=== PATIENT | male | born 1930 | race Caucasian/White ===

== ENCOUNTER 2019-10-11 19:30 | Emergency (ER) | payer MEDICARE ==
[~2019-10-11] VITALS: Ht 168.9 cm; Wt 68.0 kg
--- NOTE | 2019-10-11 19:50 | NUR ---
PATIENT CAME TO ER BIB C/O DULL 11/16 RIGHT LOWER RIB CAGE PAIN UPON BREATHING S/P GROUND LEVEL FALL. PATIENT STATES THAT HE WAS OUT TO GET THE MAIL WHEN HE LOST HIS BALANCE AND FELL ON HIS RIGHT SIDE. PT DENIES HITTING HIS HEAD OR LOSING CONSCIOUSNESS. AAOX4. NO SOB. BREATHING EVENLY AND UNLABORED ON ROOM AIR. CONNECTED TO MONITOR. Addendum: 10/11/19 at 2013 by DEVIN PATIENT STATES HE TAKES PLAVIX DAILY, LAST TAKEN THIS MORNING.
--- NOTE | 2019-10-11 19:55 | NUR ---
TECH AT BEDSIDE FOR WOUND CLEANING.
[2019-10-11] MEDS ORDERED: ACETAMINOPHEN ES 500 MG TABLET ONE (20:15)
--- NOTE | 2019-10-11 20:17 | NUR ---
TECH AT BEDSIDE FOR EKG.
--- NOTE | 2019-10-11 20:22 | NUR ---
Benzene Worker at bedside for blood draw.
[2019-10-11] MEDS ORDERED: ACETAMINOPHEN ES 500 MG TABLET PO ONE (20:30)
--- NOTE | 2019-10-11 20:32 | NUR ---
xray at bedside.
[2019-10-11 20:34] LABS: BASOPHILS % (AUTO) 0.5 % (0.0-2.0); EOSINOPHILS % (AUTO) 0.7 % (0.0-6.0); HEMATOCRIT 39 % (39-51); HEMOGLOBIN 13.3 g/dL (13.5-17.5); LYMPHOCYTES # (AUTO) 0.8 /CMM (0.8-4.8); LYMPHOCYTES % (AUTO) 11.2 % (20.0-44.0); MEAN CORPUSCULAR HGB CONC 34 g/dl (31.0-36.0); MEAN CORPUSCULAR VOLUME 98 fL (80-96); MONOCYTES # (AUTO) 0.5 /CMM (0.1-1.30); MONOCYTES % (AUTO) 6.7 % (2.0-12.0); NEUTROPHILS # (AUTO) 5.7 /CMM (1.8-8.9); NEUTROPHILS % (AUTO) 80.9 % (43.0-81.0); PLATELET COUNT (AUTO) 183 /CMM (150-450); RED BLOOD CELL COUNT(AUTO) 4.01 MIL/uL (4.5-6.0); WHITE BLOOD COUNT (AUTO) 7.1 K/uL (4.3-11.0)
[2019-10-11 20:46] LABS: CARBON DIOXIDE 29 mmol/L (21-32); CHLORIDE 106 mmol/L (98-107); CREATININE 1.1 mg/dL (0.6-1.3); GLUCOSE 117 mg/dL (74-106); POTASSIUM 4.3 mmol/L (3.5-5.1); SODIUM SERUM 143 mmol/L (136-145); UREA NITROGEN, BLOOD 18 mg/dL (7-18)
[2019-10-11 20:52] LABS: ALANINE AMINOTRANSFERASE 26 U/L (12-78); ALBUMIN 3.6 g/dL (3.4-5.0); ALKALINE PHOSPHATASE 85 U/L (46-116); ASPARTATE AMINOTRANSFERASE 19 U/L (15-37); BILIRUBIN,DIRECT 0.1 mg/dL (0.0-0.2); BILIRUBIN,TOTAL 0.2 mg/dL (0.2-1.0); TOTAL PROTEIN, SERUM 7.1 g/dL (6.4-8.2)
[2019-10-11] MEDS ORDERED: LIDOCAINE 1%-EPI 1:100,000 20 ML VIAL ONE (21:35)
--- NOTE | 2019-10-11 21:40 | NUR ---
at bedside for suture procedure.
--- NOTE | 2019-10-11 22:11 | NUR ---
Patient discharged to home in stable condition. Written and verbal after care instructions given. Patient verbalizes understanding of instruction.
[2019-10-11 22:12] VITALS: BP 139/77
== END 2019-10-11 22:13 | disposition home or self-care (01) ==
LOC: ER 19:33
DX: S01.411A Laceration without foreign body of right cheek and temporomandibular area, initial encounter (principal); J44.9 Chronic obstructive pulmonary disease, unspecified; Z88.8 Allergy status to other drugs, medicaments and biological substances; Z88.7 Allergy status to serum and vaccine; W18.39XA Other fall on same level, initial encounter; Y93.89 Activity, other specified; Y92.89 Other specified places as the place of occurrence of the external cause; Y99.8 Other external cause status
CPT/HCPCS: 36415; 71045; 80048; 80076; 84484; 85025; 93005; 99285; A6403 ×2; J3490